=== PATIENT | female | born 1990 | race Caucasian/White ===

== ENCOUNTER 2025-03-10 10:00 | Outpatient (CLI) | payer BC, SELFPAY ==
[2025-03-10 10:58] LABS: FREE T4 0.98 ng/dL (0.76-1.46); TSH 0.86 uIU/mL (0.36-3.74)
[2025-03-10 11:29] LABS: HCG Quant, Pregnancy < 1 mIU/mL (1-3)
[2025-03-10 18:23] LABS: T3,Free 3.3 pg/mL (2.8-5.3)
[2025-03-10 18:59] LABS: Estradiol 27 pg/mL (See Note); Progesterone 0.2 ng/mL (See Table)
[2025-03-10 19:05] LABS: FSH 7.6 mIU/mL (See Note); LH 7.8 mIU/mL (See Note)
[2025-03-12 10:06] LABS: Antimullerian Hormone 4.3 ng/mL (0.15-7.5)
== END 2025-03-10 10:01 | disposition home or self-care (01) ==
LOC: LBO 10:00
PROVIDERS: PCP Physician Assistant Medical; Visit Provider Obstetrics & Gynecology Reproductive Endocrinology
DX: Z31.83 Encounter for assisted reproductive fertility procedure cycle (principal)
CPT/HCPCS: 36415; 82670; 83001; 83002; 83520; 84144; 84439; 84443; 84481; 84702

== ENCOUNTER 2025-03-15 10:31 | Outpatient (CLI) | payer BC, SELFPAY ==
[2025-03-15 17:54] LABS: Estradiol 86 pg/mL (See Note)
[2025-03-15 18:00] LABS: Progesterone 0.4 ng/mL (See Table)
[2025-03-15 18:45] LABS: LH 9.9 mIU/mL (See Note)
== END 2025-03-15 10:32 | disposition home or self-care (01) ==
LOC: LBO 10:31
PROVIDERS: PCP Physician Assistant Medical; Visit Provider Obstetrics & Gynecology Reproductive Endocrinology
DX: Z31.83 Encounter for assisted reproductive fertility procedure cycle (principal)
CPT/HCPCS: 36415; 82670; 83002; 84144

== ENCOUNTER 2025-03-17 09:38 | Outpatient (CLI) | payer BC, SELFPAY ==
[2025-03-17 18:18] LABS: Estradiol 332 pg/mL (See Note); LH 1.5 mIU/mL (See Note); Progesterone 0.9 ng/mL (See Table)
== END 2025-03-17 09:39 | disposition home or self-care (01) ==
LOC: LBO 09:39
PROVIDERS: PCP Physician Assistant Medical; Visit Provider Obstetrics & Gynecology Reproductive Endocrinology
DX: Z31.83 Encounter for assisted reproductive fertility procedure cycle (principal)
CPT/HCPCS: 36415; 82670; 83002; 84144